=== PATIENT | female | born 1995 | race African-American/Black ===

== ENCOUNTER 2021-07-05 13:03 | Emergency (ER) | payer BC, OTHER ==
[2021-07-05] MEDS ORDERED: Ibuprofen 200 MG TAB ONE (13:28)
[2021-07-05 14:11] LABS: Hemoglobin A1c 12.4 % (4.0-6.0)
[2021-07-05 21:38] LABS: SARS-CoV-2 PCR by NAA Not Detected (NotDetected)
== END 2021-07-05 14:33 | disposition home or self-care (01) ==
LOC: ERS 13:03
DX: E11.9 Type 2 diabetes mellitus without complications (principal); I10 Essential (primary) hypertension; Z20.822 Contact with and (suspected) exposure to COVID-19
CPT/HCPCS: 36415; 36416; 82010; 83036; 99284; U0003; U0005